=== PATIENT | male | born 1990 | race Caucasian/White ===

== ENCOUNTER 2022-05-07 14:48 | Emergency (ER) | payer OTHER ==
[2022-05-07 15:33] LABS: BASOPHIL 0.4 % (0-2); EOSINOPHIL 1.8 % (0-5); HCT 43.7 % (42.0-52.0); LYMPHOCYTE 29.8 % (15-48); MCH 30.1 pg (25.0-31.0); MCHC 34.3 g/dL (32.0-36.0); MCV 87.8 fL (78.0-100.0); MONOCYTE 7.2 % (0-12); MPV 9.2 fL (6.0-9.5); NEUTROPHIL 60.6 % (41-80); NRBC 0; PLT 174 K/uL (150-400); RBC 4.98 M/uL (4.70-6.00); WBC 5.7 K/uL (4.0-10.5)
[2022-05-07 16:09] LABS: CORONAVIRUS 2019 SARS-COV-2 NEGATIVE (NEGATIVE); INFLUENZA A NAA NEGATIVE (NEGATIVE)
[2022-05-07 16:12] LABS: ALBUMIN 4.1 g/dL (3.4-5.0); BILIRUBIN - TOTAL 0.6 mg/dL (0.2-1.0); GLOBULIN (CALCULATION) 3.5 g/dL; TOTAL PROTEIN 7.6 g/dL (6.4-8.2)
[2022-05-07 16:14] LABS: CREATININE 1.19 mg/dL (0.67-1.17); POTASSIUM 4.1 mmol/L (3.5-5.1)
== END 2022-05-07 17:31 | disposition home or self-care (01) ==
LOC: FER 14:48
PROVIDERS: Internal Medicine
DX: G43.909 Migraine, unspecified, not intractable, without status migrainosus (principal); Z20.822 Contact with and (suspected) exposure to COVID-19
CPT/HCPCS: 36415; 70450; 80053; 84145; 85025; J1100; J1885; J7030; U0002